=== PATIENT | female | born 2000 ===

== ENCOUNTER → 2025-06-10 23:59 | Outpatient (BNV) | payer OTHER, SELFPAY ==
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
== END ==
PROVIDERS: PCP Nurse Practitioner Family; Visit Provider Nurse Practitioner Family
DX: R45.89 Other symptoms and signs involving emotional state (principal); Z91.89 Other specified personal risk factors, not elsewhere classified; N94.9 Unspecified condition associated with female genital organs and menstrual cycle
CPT/HCPCS: 99204

== ENCOUNTER → 2025-06-26 11:45 | Outpatient (BNV) | payer OTHER, SELFPAY ==
--- NOTE | 2025-06-26 11:46 | MHC.OFFVIS ---
Intake Visit Reasons: Amb Documentation Allergies limes,mosquito,carrots, tobacco Allergy (Unknown, Uncoded 06/12/25 10:24) Unknown HPI Comments Details: came to tell me about her medical issues and ask questions !)Prazosin -took before - but stopped bc when she took w/ venlafaxine collapsed and was seen in ER and told that these meds weren?t compatible-? she was put on it for PTSD nightmares.? Asked about if it helped - she thinks it helped in past but she can?t remember- but last took it and woke up once in middle of night and also woke up vomiting.? She was also RX?d Escatlopram? 5 mg - hasn?t started to take it bc vomiting -wants to know what I think - should she take it?(Psychiatrist prescribed Tuesday)? She wasn?t going to come to school this morning bc started Vomiting and passed out in the sink? - no concerns about .? Tubes tied - IUD was removed but was just for control of bleeding. She bled a lot for a long time after this but this IUD bleeding finally stopped on it?s own Despite vomiting she came to school to see ?the nurse? - she has? PCP - plant engineering manager though at 25 has aged out - saw recently (2 days ago).? Urine done (but she doesn?t know the results) Stomach is still not right - tried a wolof salad and ate that and didn?t sit well. Was dizzy and tired but feeling better now just still exhausted MOOD: HAS connected w/ a therapist - Herb Lopez - will be talking to her -Nata -next week -will talk on the phone first bc she has 3 therapists? 1)Dialectical behavior therapist (?bpd? therapist) - [facility]- 2)Instructor for parenting class and anger management - thinking about dropping her as a therapist but likes her w/ the parenting/anger - has conservative approach/God mentioned during the visit This third one is more available - I question the credentials and role of these others? are they all billing as therapists??but if billing is an issue this will be theirs to figure out.? 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 Working on empathic but limited connection to support her in moving forward despite her trauma and current struggles VAGINAL CONCERNS/STI She states that she was sleeping ?next to her boyfriend? - when asked about this since the last time she discussed having 2 partners - she states that one left her for old girlfriend and she was fine w/ this and the partner that remains is the one that didn?t really listen to her saying that she didn?t want to have sex. ? Vagina irriitation got better -? BV got better. - plant engineering manager said it could be getting aggravated by her partner who has a sweating disorder - we discussed this for a while - I had previously discussed boric acid but I have a sense that she is hypervigilant to these symptoms and could over treat herself.? She is hard to contain during visits - her history very hard to get in a linear fashion and she often interrupts. ? 110/70. Her mood is pleasant but scattered. ? [facility] Medical History Family history non-contributory Anxiety about health At risk for sexually transmitted disease due to unprotected sex Anemia Review of Systems Const Details: Counseling visit: All systems reviewed & are unremarkable except as noted in HPI and below Reports as per HPI Resp Reports as per HPI GI Reports as per HPI Musc Reports as per HPI Neuro Reports as per HPI Psych Reports as per HPI Physical Exam Const General: cooperative, healthy appearing and no acute distress Nutritional Appearance: well nourished Orientation/consciousness: oriented to person Limitations: no limitations HEENT Other: wnl Eyes Other: wnl Chest Other: easy breathing Resp Effort & Inspection: able to speak in complete sentences Skin Other: normal in appearance Neuro General: oriented to person Psych Other: see HPI Mental Status: mental status grossly normal Speech and movement: Clear speech present Attitude: cooperative Thought process: Normal thought process present Assessment & Plan Assessment & Plan (1) Anxiety about health: Code(s): R45.89 - Other symptoms and signs involving emotional state Category: Medical (2) Vaginal discomfort: Code(s): N94.9 - Unspecified condition associated with female genital organs and menstrual cycle Category: Medical (3) At risk for sexually transmitted disease due to unprotected sex: Code(s): Z91.89 - Other specified personal risk factors, not elsewhere classified Category: Social Hx (4) Vomiting: Code(s): R11.10 - Vomiting, unspecified Category: Medical Plan ?PLAN: Working on keeping her in class and trying to see her around that rather than encouraging her to come out of class to work on issues. ? xavi - will encourage the therapy commitment? STI blood work is ordered and not done at [facility] encouraging her to get relationship w/ ongoing gyne so that she can have regular non-judgmental STI screening. She will see how the vomiting is today as she seems better and this doesn?t seem viral, if she vomits again - she will leave and go to pcp.? Otherwise she will try prazosin again tonight and if vomits again in morning w/ contact psychiatrist. IF NO vomiting she will add lexapro 5 mg in tomorrow. Discussed not complicating the picture adding it in before she understands whether she will be vomiting again Coding Level of Care Code Est Pt Level 5 (75383) Diagnoses Anxiety about health R45.89 Vaginal discomfort N94.9 At risk for sexually transmitted disease due to unprotected sex Z91.89 Vomiting R11.10 Time Spent (min) 60 Comment counseling, and coord care w/ CHAR CONVEYOR TENDER CELLAR covering provider and onsite support services tech
== END ==
PROVIDERS: PCP Nurse Practitioner Family; Visit Provider Nurse Practitioner Family
DX: R45.89 Other symptoms and signs involving emotional state (principal); N94.9 Unspecified condition associated with female genital organs and menstrual cycle; Z91.89 Other specified personal risk factors, not elsewhere classified; R11.10 Vomiting, unspecified
CPT/HCPCS: 99215; 99417

== ENCOUNTER → 2025-09-03 09:54 | Outpatient (BNV) | payer OTHER, SELFPAY ==
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
== END ==
PROVIDERS: PCP Nurse Practitioner Family; Visit Provider Nurse Practitioner Family
DX: L98.9 Disorder of the skin and subcutaneous tissue, unspecified (principal); R45.89 Other symptoms and signs involving emotional state; F41.9 Anxiety disorder, unspecified; R46.81 Obsessive-compulsive behavior; F43.10 Post-traumatic stress disorder, unspecified; Z91.89 Other specified personal risk factors, not elsewhere classified
CPT/HCPCS: 99215

== ENCOUNTER → 2025-09-12 09:46 | Outpatient (BNV) | payer OTHER, SELFPAY ==
--- NOTE | 2025-09-12 09:46 | MHC.OFFVIS ---
Intake Visit Reasons: Amb Documentation Allergies limes,mosquito,carrots, tobacco Allergy (Unknown, Uncoded 06/12/25 10:24) Unknown HPI Comments Details: Rosalia signed up to see me bc she feels 'all over the place'. she has been taking the lexapro at 5mg everyday since last saw me and states that she feels so angry - suddenly - she's been yelling at her boyfriend for no reason ...she initially states that she's been up and down with the lexapro and felt that was causing the problem . but looking at the history iI think she is actually been consistently taking but only for a week - It doesn't see mthat this is what is causing the problem - she has tears in her eyes and is not her usual peppy self - bc she is in school we talked about trying to contain her strong emotions rather than triggering her by asking more about things. she states that her dog ruined the bottle of lexapro and so she didn't take it today. she feels afraid that she will crash. afraid that she can't get the medications she needs bc she lost these. She has an rx for 10mg waiting for her. the plan is 1) reassured her than missing one day of lexapro won't cause a crash but that she should pick pulling machine operator the waiting rx and take either half as she has been doing or asked if she feels that she can step it up to 10 great as I think she is depressed and that may be causing the anger spikes. She will do that - is afraid that the 10 will cause nausea and she will just stop it all together if that happens - coached to not stop but to go to 5mg if that's where she feels safe 2) [facility] that [facility] and reaches for phone to see if he will respond right away - stopped her- bc she is reacting to impulsivenss and has class to attend - we spoke at length about distraction and letting herself be distracted and be in class moving towards her goal rather than jump off the path to fix the urgency feeling. she agreed that this would be helpful. she WILL call psychiatrist at break and ask to be seen as it does seem that there's been a change in her affect [facility] Medical History (Updated 09/12/25 @ 10:22 by SHAD Craig) Depression, major, recurrent, moderate Has multiple sexual partners PTSD (post-traumatic stress disorder) Obsessive behaviors Anxiety disorder, unspecified Family history non-contributory Anxiety about health At risk for sexually transmitted disease due to unprotected sex Anemia Review of Systems Const Details: Counseling visit: All systems reviewed & are unremarkable except as noted in HPI and below Reports as per HPI Resp Reports as per HPI GI Reports as per HPI Musc Reports as per HPI Neuro Reports as per HPI Psych Reports as per HPI Physical Exam Const Other: quietly tearing General: cooperative and in distress Nutritional Appearance: thin Orientation/consciousness: patient oriented x3 Limitations: no limitations HEENT Other: wnl Eyes Other: wnl Chest Other: easy breathing Resp Effort & Inspection: able to speak in complete sentences Skin Other: normal in appearance Neuro General: patient oriented x3 Psych Other: see HPI Mental Status: mental status grossly normal Speech and movement: Clear speech present Affect: Sad affect present Attitude: cooperative Thought process: Normal thought process present Insight: Fair insight present (Psych) Judgement: Fair judgement present (Psych) Assessment & Plan Assessment & Plan (1) Anxiety disorder, unspecified: Code(s): F41.9 - Anxiety disorder, unspecified Category: Medical (2) PTSD (post-traumatic stress disorder): Code(s): F43.10 - Post-traumatic stress disorder, unspecified Category: Medical (3) Depression, major, recurrent, moderate: Code(s): F33.1 - Major depressive disorder, recurrent, moderate Category: Medical (4) Counseling and coordination of care: Code(s): Z71.89 - Other specified counseling Category: Medical Plan PLAN 1) reassured her than missing one day of lexapro won't cause a crash but that she should pick pulling machine operator the waiting rx and take either half as she has been doing or asked if she feels that she can step it up to 10 great as I think she is depressed and that may be causing the anger spikes. She will do that - is afraid that the 10 will cause nausea and she will just stop it all together if that happens - coached to not stop but to go to 5mg if that's where she feels safe 2) [facility] that [facility] and reaches for phone to see if he will respond right away - stopped her- bc she is reacting to impulsivenss and has class to attend - we spoke at length about distraction and letting herself be distracted and be in class moving towards her goal rather than jump off the path to fix the urgency feeling. she agreed that this would be helpful. she WILL call psychiatrist at break and ask to be seen as it does seem that there's been a change in her affect Coding Level of Care Code Est Pt Level 4 (23619) Diagnoses Anxiety disorder, unspecified F41.9 PTSD (post-traumatic stress disorder) F43.10 Depression, major, recurrent, moderate F33.1 Counseling and coordination of care Z71.89 Time Spent (min) 35 Comment extensive counseling and support coord care w/ onsite services
== END ==
PROVIDERS: PCP Nurse Practitioner Family; Visit Provider Nurse Practitioner Family
DX: F41.9 Anxiety disorder, unspecified (principal); F43.10 Post-traumatic stress disorder, unspecified; F33.1 Major depressive disorder, recurrent, moderate; Z71.89 Other specified counseling
CPT/HCPCS: 99214

== ENCOUNTER → 2025-09-16 09:58 | Outpatient (BNV) | payer OTHER, SELFPAY ==
--- NOTE | 2025-09-16 10:12 | A.OFFVIS_ITS ---
Intake Visit Reasons: Amb Documentation Allergies limes,mosquito,carrots, tobacco Allergy (Unknown, Uncoded 06/12/25 10:24) Unknown HPI Comments Details: Student comes to me without signing up but it is 930 and she has seen Tita Dalton downstairs for headache and came to me separately.? Long conversation - she comes complaining of headache and when asked about Lexapro (see previous note) she states that her dog tipped bottle over (repeating the story that she told last week) she has not refilled meds, nor called psychiatrist.? She has tried to find PCP but was struggling w/ [employer] who sent her to ?social security? ?because of ?my autism? (nothing in history about autism - she states that her mother usually does all her planning because of this problem and her mom has been super busy lately).? She appears in no distress (unlike last visit where she was tearing up).? She states that she is getting headaches for no reason, and starts shaking even though she is feeling fine (no connection w/ anxiety etc) and then she states that her vision blurs.? We had a long conversation - also straightened out her [employer] health issues (she states that she called them and SS and was told that she had the wrong addresses. -she gave them everyone she ever knew). I called our billers and on the [employer] website the information is at issue MH:[id number]. Address is [address] BUT she has? [employer] [place]: [phone]. And the address is in [place] (her mother gave custody to her mother - maybe not biological - when she was 18 years old and it didn?t last long) they have the address [place] [address] [place] [address]. And her P CP: Promise Sepulvedatcaravindp (we think this may be someone in [place]) She lives near [facility] and will try and get registered there with this information - she has tried before but couldn?t get through issue w/ Other manriquez she appears fine - we talked at length and developed plan below together - I will speak w/ Rosario the student support services here to help her support this vulnerable student She is overwhelmed? - was in court and was able to get restraining order out on her ex who she thinks is out of assisted at this time. PLAN * coordinate care w/ Tita Dalton downstairs - to see how it is working w/ student educationally? * Student will contact and [facility] to get switched to [facility] and make appt. * Suggested that she picker/puller the Lexapro 10mg and at least start it at 5mg - calling her psychiatrist to get appt.? (She wasn?t really recalling how she was feeling last visit - So I even mentioned that it?s hard for her to keep track of her feelings day to day and she smiles and agrees)?so I proposed this plan but encouraged her to tell me if she didn?t feel able to do this. * I will talk w/ Rosario re: plan * She was already medicated for headache w/ Tylenol and is in no pain at the moment - it is transient and wasn?t happening - last episode was over dinner last night PFSH Medical History Depression, major, recurrent, moderate Has multiple sexual partners PTSD (post-traumatic stress disorder) Obsessive behaviors Anxiety disorder, unspecified Family history non-contributory Anxiety about health At risk for sexually transmitted disease due to unprotected sex Anemia Review of Systems Const Details: Counseling visit: All systems reviewed & are unremarkable except as noted in HPI and below Reports as per HPI and Reports no additional complaints Eyes Details: states vision gets blurry w/ headache Card Reports no additional complaints Resp Reports as per HPI and Reports no additional complaints GI Reports as per HPI and Reports no additional complaints Musc Reports as per HPI Skin/Breast Reports system reviewed and no additional complaints, except as documented Neuro Reports as per HPI Psych Details: see hpi - student denies anxiety or depression or any problem at all when the headaches and shakiness are happening but I am concerned that she can't retain the full history and also is afraid that she will get brushed off Reports as per HPI and Reports mood swings Physical Exam afebrile Const Other: student seems calm and not in an distress -but less relaxed then she usually appears General: cooperative, healthy appearing and no acute distress Nutritional Appearance: thin Orientation/consciousness: oriented to person Limitations: no limitations HEENT Other: wnl Eyes Other: wnl Chest Other: easy breathing Resp Effort & Inspection: able to speak in complete sentences Skin Other: normal in appearance Neuro General: oriented to person Psych Other: see HPI Mental Status: mental status grossly normal Speech and movement: Clear speech present Affect: normal affect Attitude: cooperative Insight: Fair insight present (Psych) Judgement: Fair judgement present (Psych) Assessment & Plan Assessment & Plan (1) Headache: Code(s): R51.9 - Headache, unspecified Category: Medical (2) Anxiety about health: Code(s): R45.89 - Other symptoms and signs involving emotional state Category: Medical (3) Anxiety disorder, unspecified: Code(s): F41.9 - Anxiety disorder, unspecified Category: Medical (4) Obsessive behaviors: Code(s): R46.81 - Obsessive-compulsive behavior Category: Medical (5) PTSD (post-traumatic stress disorder): Code(s): F43.10 - Post-traumatic stress disorder, unspecified Category: Medical (6) Depression, major, recurrent, moderate: Code(s): F33.1 - Major depressive disorder, recurrent, moderate Category: Medical (7) Counseling and coordination of care: Code(s): Z71.89 - Other specified counseling Category: Medical Plan PLAN * coordinate care w/ Tita Dalton downstairs - to see how it is working w/ student educationally? * Student will contact and N to get switched to [facility] and make appt. * Suggested that she picker/puller the Lexapro 10mg and at least start it at 5mg - calling her psychiatrist to get appt.? (She wasn?t really recalling how she was feeling last visit - So I even mentioned that it?s hard for her to keep track of her feelings day to day and she smiles and agrees)?so I proposed this plan but encouraged her to tell me if she didn?t feel able to do this. * I will talk w/ Rosario re: plan * She was already medicated for headache w/ Tylenol and is in no pain at the moment - it is transient and wasn?t happening - last episode was over dinner last night Coding Level of Care Code Est Pt Level 4 (63099) Diagnoses Headache R51.9 Anxiety about health R45.89 Anxiety disorder, unspecified F41.9 Obsessive behaviors R46.81 PTSD (post-traumatic stress disorder) F43.10 Depression, major, recurrent, moderate F33.1 Counseling and coordination of care Z71.89 Time Spent (min) 50 Comment extensive counseling and support and coord care
== END ==
PROVIDERS: PCP Nurse Practitioner Family; Visit Provider Nurse Practitioner Family
DX: R51.9 Headache, unspecified (principal); R45.89 Other symptoms and signs involving emotional state; F41.9 Anxiety disorder, unspecified; R46.81 Obsessive-compulsive behavior; F43.10 Post-traumatic stress disorder, unspecified; F33.1 Major depressive disorder, recurrent, moderate; Z71.89 Other specified counseling
CPT/HCPCS: 99214